=== PATIENT | male | born 1985 | race African-American/Black ===

== ENCOUNTER 2017-07-06 16:52 | Inpatient (IN) | payer BC, OTHER ==
[2017-07-06 20:16] LABS: ADD MAN DIFF? NO
[2017-07-06 20:19] LABS: WHITE BLOOD COUNT 7.4 10^3/ul (4.8-10.8)
[2017-07-06 20:19] LABS: BASOPHILS % 0.4 % (0.0-2.0); EOSINOPHILS % 0.3 % (0.0-7.0); HEMATOCRIT 41.9 % (42.0-52.0); HEMOGLOBIN 14.6 g/dl (14.0-18.0); LYMPHOCYTES # 1.2 10^3/ul (0.8-2.9); LYMPHOCYTES % 16.1 % (15.0-51.0); MEAN CORPUSCULAR HEMOGLOBIN 29.4 pg (29.0-33.0); MEAN CORPUSCULAR HGB CONC 34.8 g/dl (32.0-37.0); MEAN CORPUSCULAR VOLUME 84.3 fl (82.0-101.0); MEAN PLATELET VOLUME 10.5 fl (7.4-10.4); MONOCYTE # 0.6 10^3/ul (0.3-0.9); MONOCYTES % 8.3 % (0.0-11.0); NEUTROPHIL # 5.5 10^3/ul (1.6-7.5); NEUTROPHILS % 74.6 % (39.0-77.0); PLATELET COUNT 204 10^3/UL (140-415); RED BLOOD COUNT 4.97 10^6/ul (4.70-6.10); RED CELL DISTRIBUTION WIDTH 12.8 % (11.5-14.5)
[2017-07-06 20:36] LABS: ALANINE AMINOTRANSFERASE 28 IU/L (13-69); ALBUMIN 4.7 g/dl (3.3-4.9); ALBUMIN/GLOBULIN RATIO 1.38; ALKALINE PHOSPHATASE 62 IU/L (42-121); ANION GAP 18 (8-16); ASPARTATE AMINO TRANSFERASE 23 IU/L (15-46); BILIRUBIN,INDIRECT 0.5 mg/dl (0-1.1); BILIRUBIN,TOTAL 0.5 mg/dl (0.2-1.3); BLOOD UREA NITROGEN 12 mg/dl (7-20); CALCIUM 9.4 mg/dl (8.4-10.2); CARBON DIOXIDE 27 mmol/L (21-31); CHLORIDE 99 mmol/L (97-110); CREATININE 0.93 mg/dl (0.61-1.24); GLUCOSE 108 mg/dl (70-220); POTASSIUM 3.9 mmol/L (3.5-5.1); SODIUM 140 mmol/L (135-144); TOTAL PROTEIN 8.1 g/dl (6.1-8.1)
[2017-07-06 20:50] LABS: INR 1.06; PROTIME 13.9 Sec (11.9-14.9); PT RATIO 1.1
[2017-07-06 20:51] LABS: PARTIAL THROMBOPLASTIN TIME 25.1 Sec (25.0-35.0)
[2017-07-06 20:55] LABS: TROPONIN-I < 0.012 ng/ml (0.00-0.12)
[2017-07-06] MEDS ORDERED: ONDANSETRON 4 MG INJ IV ×2 (22:30→23:30)
[2017-07-06] MEDS ORDERED: ACETAMINOPHEN 325 MG TAB PO (23:30)
[2017-07-06] MEDS ORDERED: DOCUSATE SODIUM 100 MG CAP PO (23:30)
[2017-07-06] MEDS ORDERED: NITROGLYCERIN (SL) 0.4 MG TAB SL (23:30)
[2017-07-06] MEDS ORDERED: BISACODYL (EC) 5 MG TAB PO (23:30)
[2017-07-06] MEDS ORDERED: NACL 0.9% 3 ML SYG IV (23:30)
[2017-07-07 00:44] LABS: CREATINE KINASE 119 IU/L (23-200)
[2017-07-07 00:52] LABS: D-DIMER < 220.00 ng/ml (<460)
[2017-07-07 00:56] LABS: CK INDEX 0.5
[2017-07-07 01:05] LABS: CK-MB 0.55 ng/ml (0.0-2.4); TROPONIN-I < 0.012 ng/ml (0.00-0.12)
[2017-07-07] MEDS: SOD CHLORIDE 0.9% 1,000 ML IV (03:09)
[2017-07-07] MEDS ORDERED: ATROPINE 1 MG/10 ML SYRINGE (03:22)
[2017-07-07] MEDS: ACETAMINOPHEN 325 MG TAB PO (03:30)
[2017-07-07] MEDS: ATROPINE 1 MG/10 ML SYRINGE IV (03:43)
[2017-07-07] MEDS: ATROPINE 0.4 MG INJ IV (04:00)
[2017-07-07 05:42] LABS: ADD MAN DIFF? NO
[2017-07-07 05:46] LABS: BASOPHILS % 0.5 % (0.0-2.0); EOSINOPHILS % 0.7 % (0.0-7.0); HEMATOCRIT 38.4 % (42.0-52.0); HEMOGLOBIN 13.2 g/dl (14.0-18.0); LYMPHOCYTES # 2.1 10^3/ul (0.8-2.9); LYMPHOCYTES % 35.7 % (15.0-51.0); MEAN CORPUSCULAR HEMOGLOBIN 29.3 pg (29.0-33.0); MEAN CORPUSCULAR HGB CONC 34.4 g/dl (32.0-37.0); MEAN CORPUSCULAR VOLUME 85.1 fl (82.0-101.0); MEAN PLATELET VOLUME 11.2 fl (7.4-10.4); MONOCYTE # 0.5 10^3/ul (0.3-0.9); MONOCYTES % 8.4 % (0.0-11.0); NEUTROPHIL # 3.3 10^3/ul (1.6-7.5); NEUTROPHILS % 54.5 % (39.0-77.0); PLATELET COUNT 199 10^3/UL (140-415); RED BLOOD COUNT 4.51 10^6/ul (4.70-6.10); RED CELL DISTRIBUTION WIDTH 12.6 % (11.5-14.5)
[2017-07-07 06:18] LABS: CREATINE KINASE 138 IU/L (23-200)
[2017-07-07 06:28] LABS: CK INDEX 0.4
[2017-07-07 06:39] LABS: CK-MB 0.49 ng/ml (0.0-2.4); TROPONIN-I < 0.012 ng/ml (0.00-0.12)
[2017-07-07 07:08] LABS: LACTIC ACID 0.9 mmol/L (0.5-2.0)
[2017-07-07 07:36] LABS: ALANINE AMINOTRANSFERASE 28 IU/L (13-69); ALBUMIN 4.2 g/dl (3.3-4.9); ALBUMIN/GLOBULIN RATIO 1.61; ALKALINE PHOSPHATASE 52 IU/L (42-121); ANION GAP 15 (8-16); ASPARTATE AMINO TRANSFERASE 21 IU/L (15-46); BILIRUBIN,INDIRECT 0.3 mg/dl (0-1.1); BILIRUBIN,TOTAL 0.3 mg/dl (0.2-1.3); BLOOD UREA NITROGEN 10 mg/dl (7-20); CALCIUM 9.1 mg/dl (8.4-10.2); CARBON DIOXIDE 25 mmol/L (21-31); CHLORIDE 103 mmol/L (97-110); CHOL/HDL RATIO 3.3 RATIO; CHOLESTEROL 128 mg/dl (100-200); CREATININE 0.78 mg/dl (0.61-1.24); GLUCOSE 91 mg/dl (70-220); HDL CHOLESTEROL 38 mg/dl (28-63); LDL CHOLESTEROL,CALCULATED 80 mg/dl; POTASSIUM 3.8 mmol/L (3.5-5.1); SODIUM 139 mmol/L (135-144); TOTAL PROTEIN 6.8 g/dl (6.1-8.1); TRIGLYCERIDES 50 mg/dl (0-149)
[2017-07-07 07:39] LABS: C-REACTIVE PROTEIN 0.6 mg/dl (0.0-0.9)
[2017-07-07 07:58] LABS: ERYTHROCYTE SEDIMENTATION RATE 3 mm/Hr (0-15)
[2017-07-07 08:00] LABS: THYROID STIMULATING HORMONE 0.257 MIU/L (0.465-4.680)
[2017-07-07 09:41] LABS: AMPHETAMINE/METHAMPHETAMINE Negative (NEGATIVE); BARBITURATES Negative (NEGATIVE); BENZODIAZEPINES Negative (NEGATIVE); CANNABINOIDS Positive (NEGATIVE); COCAINE Negative (NEGATIVE); OPIATES Negative (NEGATIVE)
[2017-07-07 13:48] LABS: HEPATITIS C VIRAL ANTIBODY NEGATIVE (NEGATIVE)
[2017-07-08 05:12] LABS: ADD MAN DIFF? NO
[2017-07-08 05:23] LABS: BASOPHILS % 0.8 % (0.0-2.0); EOSINOPHILS # 0.1 10^3/ul (0.0-0.5); EOSINOPHILS % 2.7 % (0.0-7.0); HEMATOCRIT 39.2 % (42.0-52.0); HEMOGLOBIN 13.1 g/dl (14.0-18.0); LYMPHOCYTES # 2.1 10^3/ul (0.8-2.9); LYMPHOCYTES % 56.7 % (15.0-51.0); MEAN CORPUSCULAR HGB CONC 33.4 g/dl (32.0-37.0); MEAN CORPUSCULAR VOLUME 86.7 fl (82.0-101.0); MEAN PLATELET VOLUME 10.6 fl (7.4-10.4); MONOCYTE # 0.4 10^3/ul (0.3-0.9); MONOCYTES % 11.4 % (0.0-11.0); NEUTROPHILS % 28.4 % (39.0-77.0); PLATELET COUNT 181 10^3/UL (140-415); RED BLOOD COUNT 4.52 10^6/ul (4.70-6.10); RED CELL DISTRIBUTION WIDTH 12.9 % (11.5-14.5)
[2017-07-08 05:23] LABS: WHITE BLOOD COUNT 3.7 10^3/ul (4.8-10.8)
[2017-07-08 06:48] LABS: ANION GAP 17 (8-16); BLOOD UREA NITROGEN 11 mg/dl (7-20); CALCIUM 8.9 mg/dl (8.4-10.2); CARBON DIOXIDE 25 mmol/L (21-31); CHLORIDE 104 mmol/L (97-110); CREATININE 0.92 mg/dl (0.61-1.24); GLUCOSE 84 mg/dl (70-220); PHOSPHORUS 4.3 mg/dl (2.5-4.9); POTASSIUM 4.3 mmol/L (3.5-5.1); SODIUM 142 mmol/L (135-144)
[2017-07-08] MEDS ORDERED: HYDROmorphONE 0.5 MG/0.5 ML SYG (14:48)
[2017-07-09] MEDS ORDERED: INFLUENZA VIRUS VACCINE 0.5 ML SYG IM* (10:00)
== END 2017-07-09 17:10 | disposition home or self-care (01) | DRG 310 ==
LOC: MS3 22:11 → E/R 16:52 → ICU 07-07 11:50 → TEL 07-08 21:53
DX: R00.1 Bradycardia, unspecified (principal); R51 Headache; I10 Essential (primary) hypertension
CPT/HCPCS: 36415; 70450; 71045; 80048; 80053; 80061; 80307; 82550; 82553; 83036; 83605; 83735; 84100; 84439; 84443; 84484; 85025; 85378; 85610; 85651; 85730; 86140; 86803; 87081; 93005; 93017; 93306; 93970; 99285-25

== ENCOUNTER 2017-07-11 13:27 | Inpatient (IN) | payer BC ==
[2017-07-11] MEDS: SOD CHLORIDE 0.9% 1,000 ML IV (14:26)
[2017-07-11] MEDS ORDERED: ACETAMINOPHEN 325 MG TAB PO ×2 (14:30→17:00)
[2017-07-11] MEDS ORDERED: ONDANSETRON 4 MG INJ IV ×2 (14:30→17:00)
[2017-07-11 14:31] LABS: ADD MAN DIFF? NO
[2017-07-11 14:33] LABS: ABNORMAL IP MESSAGE 1; BASOPHIL # 0.1 10^3/ul (0.0-0.1); BASOPHILS % 1.3 % (0.0-2.0); EOSINOPHILS # 0.1 10^3/ul (0.0-0.5); EOSINOPHILS % 1.6 % (0.0-7.0); HEMATOCRIT 43.9 % (42.0-52.0); HEMOGLOBIN 15.3 g/dl (14.0-18.0); LYMPHOCYTES # 2.5 10^3/ul (0.8-2.9); LYMPHOCYTES % 65.3 % (15.0-51.0); MEAN CORPUSCULAR HEMOGLOBIN 29.8 pg (29.0-33.0); MEAN CORPUSCULAR HGB CONC 34.9 g/dl (32.0-37.0); MEAN CORPUSCULAR VOLUME 85.6 fl (82.0-101.0); MONOCYTE # 0.4 10^3/ul (0.3-0.9); MONOCYTES % 11.6 % (0.0-11.0); NEUTROPHIL # 0.8 10^3/ul (1.6-7.5); NEUTROPHILS % 19.9 % (39.0-77.0); PLATELET COUNT 227 10^3/UL (140-415); POSITIVE DIFF @See below; RED BLOOD COUNT 5.13 10^6/ul (4.70-6.10); RED CELL DISTRIBUTION WIDTH 12.6 % (11.5-14.5)
[2017-07-11 14:33] LABS: WHITE BLOOD COUNT 3.8 10^3/ul (4.8-10.8)
[2017-07-11 14:51] LABS: ALANINE AMINOTRANSFERASE 24 IU/L (13-69); ALBUMIN 5.2 g/dl (3.3-4.9); ALKALINE PHOSPHATASE 69 IU/L (42-121); ANION GAP 22 (8-16); ASPARTATE AMINO TRANSFERASE 21 IU/L (15-46); BILIRUBIN,INDIRECT 0.9 mg/dl (0-1.1); BILIRUBIN,TOTAL 0.9 mg/dl (0.2-1.3); BLOOD UREA NITROGEN 8 mg/dl (7-20); CALCIUM 9.7 mg/dl (8.4-10.2); CARBON DIOXIDE 24 mmol/L (21-31); CHLORIDE 101 mmol/L (97-110); CREATINE KINASE 109 IU/L (23-200); CREATININE 0.88 mg/dl (0.61-1.24); GLUCOSE 89 mg/dl (70-220); LIPASE 76 U/L (23-300); POTASSIUM 3.5 mmol/L (3.5-5.1); SODIUM 143 mmol/L (135-144); TOTAL PROTEIN 8.9 g/dl (6.1-8.1)
[2017-07-11] MEDS: IOHEXOL 300MG/ML 150 ML BTL (14:51)
[2017-07-11] MEDS: SOD CHLORIDE 0.9% 100 ML (14:51)
[2017-07-11 15:01] LABS: INR 1.06; PROTIME 13.9 Sec (11.9-14.9); PT RATIO 1.1
[2017-07-11 15:02] LABS: PARTIAL THROMBOPLASTIN TIME 30.7 Sec (25.0-35.0)
[2017-07-11 15:04] LABS: B-TYPE NATRIURETIC PEPTIDE 74 PG/ML (0-125); CK INDEX 0.5
[2017-07-11 15:15] LABS: CK-MB 0.53 ng/ml (0.0-2.4); TROPONIN-I < 0.012 ng/ml (0.00-0.12)
[2017-07-11] MEDS ORDERED: HYDROCODONE/APAP (5/325) TAB PO (17:00)
[2017-07-11] MEDS ORDERED: NACL 0.9% 3 ML SYG IV (17:00)
[2017-07-11] MEDS ORDERED: DOCUSATE SODIUM 100 MG CAP PO (17:00)
[2017-07-11] MEDS: morphine 2 MG INJ IV (18:23)
== END 2017-07-11 23:07 | disposition left against medical advice (07) | DRG 310 ==
LOC: E/R 13:27 → MS4 14:08
DX: R00.1 Bradycardia, unspecified (principal); I10 Essential (primary) hypertension; R42 Dizziness and giddiness; R06.02 Shortness of breath
CPT/HCPCS: 71045; 71275; 80053; 82550; 82553; 83690; 83880; 84484; 85025; 85610; 85730; 93005; 96374; 99285-25